=== PATIENT | male | born 1950 | race Caucasian/White ===

== ENCOUNTER 2018-05-11 13:02 | Outpatient (CLI) | payer MEDICARE, OTHER ==
--- NOTE | 2018-05-11 15:22 | RAD ---
THORACIC SPINE THREE VIEWS: HISTORY: Thoracic pain Radiculopathy FINDINGS: Extensive multilevel thoracic spine disk osteophytosis. No evidence for acute fracture, dislocation, or significant malalignment. No acute compression injury. IMPRESSION: Thoracic spine disk osteophytosis, evidence for spondylosis. POS: [facility]
--- NOTE | 2018-05-11 15:36 | RAD ---
LUMBAR SPINE FOUR VIEWS: HISTORY: Radiculopathy. Low back pain FINDINGS: There is extensive multilevel disk osteophytosis and facet arthrosis, evidence for spondylosis. Prom inent arterial vascular calcifications. Several calcifications in the region of the left kidney, jamal picious for renal calculi. Flexion and extension lateral views demonstrate no evidence for abnormal translation between flexion and extension. IMPRESSION: 1. Fairly extensive multilevel disk osteophytosis and facet arthrosis, evidence for spondylosis. 2. Probable left renal calculi. 3. Prominent arterial vascular calcification of the aorta without evidence for calcified aneurysm. POS: [facility]
== END 2018-05-11 13:03 | disposition home or self-care (01) ==
LOC: RAD 13:02
PROVIDERS: ATTEND Nurse Practitioner Family
DX: M54.6 Pain in thoracic spine (principal); M54.5 Low back pain; M25.78 Osteophyte, vertebrae; M47.816 Spondylosis without myelopathy or radiculopathy, lumbar region; I70.0 Atherosclerosis of aorta
CPT/HCPCS: 72072; 72120; 80307; G0483

== ENCOUNTER 2019-07-12 13:34 | Outpatient (CLI) | payer MEDICARE ==
--- NOTE | 2019-07-12 14:41 | MRI ---
MRI CERVICAL SPINE WITHOUT CONTRAST: Date: 07/12/2019 INDICATION: Foraminal stenosis cervical region. Neck pain. FINDINGS: Cervical vertebra maintain height. There are moderate degenerative osteophytes in the cervical verteb ra. The disc spaces are preserved. There is mild anterolisthesis at C4-5 measuring at approximately 3 .0 mm. Findings at each level are described: No significant abnormality at C2-3. C3-4: Minimal disc bulge and spondylosis. No evidence of central canal stenosis. There is left forami nal stenosis which produces mild left foraminal narrowing/stenosis. C4-5: Posterior disc bulge and spondylosis is prominent and impinges on and mildly compresses the an terior cord producing slight flattening of the anterior cord. Bilateral foraminal stenosis more sever e on the right due to facet and uncinate hypertrophy at this level. C5-6: Mild disc bulge and spondylosis efface the anterior subarachnoid space. Right foraminal stenos is due to facet and uncinate hypertrophy. C6-7: Mild disc bulge and spondylosis mildly flatten the thecal sac. Anterior subarachnoid space is preserved. No significant foraminal stenosis apparent. The cord signal appears normally maintained. IMPRESSION: Multilevel degenerative disc changes. Posterior disc bulge and spondylosis most prominent at C4-5 whe re these changes mildly compress the anterior cord. There is foraminal stenosis at several levels as described. POS: [facility]
== END 2019-07-12 13:35 | disposition home or self-care (01) ==
LOC: BICMRI 13:34
PROVIDERS: ATTEND Nurse Practitioner Family
DX: M48.02 Spinal stenosis, cervical region (principal); M47.812 Spondylosis without myelopathy or radiculopathy, cervical region; M50.31 Other cervical disc degeneration, high cervical region
CPT/HCPCS: 72141

== ENCOUNTER 2019-12-13 05:43 | Day surgery (SDC) | payer MEDICARE ==
[2019-12-13] MEDS ORDERED: Thrombin 5000 UNITS/5 ML VIAL ONE (06:24)
[2019-12-13] MEDS ORDERED: Fentanyl 250 MCG/5 ML VIAL ONE (07:16)
[2019-12-13] MEDS ORDERED: Rocuronium Bromide 10 MG/ML (10ML VIAL) ONE (09:30)
[2019-12-13] MEDS ORDERED: PROPOFOL 200 MG/20 ML VIAL ONE (09:30)
[2019-12-13] MEDS ORDERED: Lidocaine 1% PF 5 ML VIAL ONE (09:30)
[2019-12-13] MEDS ORDERED: Ondansetron PF 4 MG/2 ML Vial ONE (09:30)
[2019-12-13] MEDS ORDERED: Dexamethasone 20 MG/5 ML VIAL ONE (09:30)
[2019-12-13] MEDS ORDERED: PHENYLEPHRINE-NS 100 MCG/ML 10 ML SYRINGE ONE (09:30)
[2019-12-13] MEDS ORDERED: PACU-Morphine 4MG/ML VIAL SLOW IVP PRN (09:45)
[2019-12-13] MEDS ORDERED: Ondansetron HCl/PF 4 MG/2 ML Vial IVP PRN (09:45)
[2019-12-13] MEDS ORDERED: Promethazine HCl 25 MG/ML VIAL IM PRN (09:45)
[2019-12-13] MEDS ORDERED: Morphine Sulfate 2 MG/ML SYRINGE SLOW IVP PRN (09:45)
[2019-12-13] MEDS ORDERED: HYDROmorphone 2 MG/ML VIAL SLOW IVP PRN (09:45)
[2019-12-13] MEDS ORDERED: Promethazine HCl 25 MG/ML VIAL SLOW IVP PRN (09:45)
[2019-12-13] MEDS ORDERED: SUGAMMADEX SODIUM 200 MG/2 ML VIAL ONE (10:01)
[2019-12-13] MEDS ORDERED: Milk Of Magnesia 30 ML UDCUP PO PRN (10:56)
[2019-12-13] MEDS ORDERED: diphenhydrAMINE 25 MG CAP PO PRN (10:56)
[2019-12-13] MEDS ORDERED: Bisacodyl 10 MG SUPP PR PRN (10:56)
[2019-12-13] MEDS ORDERED: Morphine 2 MG/ML VIAL SLOW IVP PRN (10:56)
[2019-12-13] MEDS ORDERED: Mag-Al 1200 mg/1200 mg/30 ML UDCUP PO PRN (10:56)
[2019-12-13] MEDS ORDERED: traMADol HCl 50 MG TAB PO PRN (10:56)
[2019-12-13] MEDS ORDERED: Acetaminophen 325 MG TAB PO PRN (10:56)
[2019-12-13] MEDS ORDERED: Acetaminophen/Codeine 30-300mg Tablet PO PRN (10:56)
[2019-12-13] MEDS ORDERED: Fleet Enema 133 ML BOT PR PRN (10:56)
[2019-12-13] MEDS ORDERED: Morphine 4 MG/ML VIAL ONE (11:01)
[2019-12-13] MEDS ORDERED: hydrALAZINE 20 MG/ML VIAL ONE (11:10)
[2019-12-13] MEDS ORDERED: Fentanyl 100 MCG/2 ML VIAL ONE ×2 (11:21→11:34)
--- NOTE | 2019-12-13 12:13 | OP ---
DATE OF PROCEDURE: 12/13/2019 LOCATION: OR-11. FORM RAISER: Venus Faith PA-C PREPROCEDURE DIAGNOSIS: Cervical stenosis with neck and arm pain with cervical radiculopathy. POSTPROCEDURE DIAGNOSIS: Cervical stenosis with neck and arm pain with cervical radiculopathy. PROCEDURES PERFORMED: 1. Anterior C4-C5 and C5-C6 diskectomies for decompression of spinal cord nerve roots. 2. Placement of interbody spacer C4-C5, C5-C6 packed with local bone autograft, obtained with same incision, allograft for initiation of arthrodesis (separate from plate). 3. Anterior cervical plate and screw fixation, C4, C5, C6. 4. Use of operative microscope for microdissection. DESCRIPTION OF PROCEDURE: After informed consent was obtained from the patient, the patient was brought to the OR. Proper patient, pause, and identification were carried out. He was placed under excellent endotracheal anesthesia and positioned supine on the OR table. Cervical spine was kept in neutral position. Right anterior oblique cynthia was drawn out. This region was sterilely cleansed, prepared, and draped. Proper patient, pause, and identification were carried out. The wound was then opened with combination of sharp, monopolar, and blunt dissection, proceeded lateral to the larynx, pharynx and medial to the right carotid sheath. We identified the prevertebral layer of deep cervical fascia. The retractors were brought in and we then turned our attention to distraction at C4-C5 and C5-C6. The microscope was brought in and diskectomy was done at C4-C5 with excellent decompression of the common dural tube and nerve roots. We then placed an interbody spacer with appropriate dimension. We then performed placement of interbody spacer packed with graft for initiation of arthrodesis. I was pleased with our decompression and initiation of arthrodesis. We then did the same thing at C5-C6 with distraction. Diskectomy was then performed at C5-C6 with excellent decompression of the common dural tube and nerve roots. Copious irrigation occurred throughout. We then placed an interbody spacer at that segment and interbody spacer was placed and copious irrigation then occurred throughout. Microscope was removed. Anterior plate and screw fixation then occurred. We were pleased with our construct. The wound was then closed in anatomic layers following hemostasis. Job ID: [id number]
[2019-12-13] MEDS: HYDROcodone/Acetaminophen 7.5/325 mg Tablet PO PRN ×2 (13:01→23:16)
[2019-12-13] MEDS: Cyclobenzaprine 10 MG TAB PO PRN (14:51)
[2019-12-13] MEDS: CEFAZOLIN 2 GM in Premix Bag 1 BAG IVPB SCH ×2 (17:25→23:13)
[2019-12-13] MEDS: Sodium Chloride 0.9% 1,000 ML IV SCH ×2 (17:25→23:55)
[2019-12-13 18:24] VITALS: BMI 33.4
[2019-12-13] MEDS: Bupropion 150 MG SR TAB PO SCH (20:17)
[2019-12-13] MEDS ORDERED: Tapentadol Hcl [Nucynta] 50 MG PO SCH (21:00)
[2019-12-13] MEDS ORDERED: Atorvastatin Calcium 20 MG TAB PO SCH (21:00)
[2019-12-14] MEDS: CEFAZOLIN 2 GM in Premix Bag 1 BAG IVPB SCH (08:40)
[2019-12-14] MEDS ORDERED: Tamsulosin HCl 0.4 MG CAP PO SCH (09:00)
[2019-12-14] MEDS ORDERED: Escitalopram Oxalate 20 mg Tablet PO SCH (09:00)
[2019-12-14] MEDS: Bupropion 150 MG SR TAB PO SCH (09:32)
[2019-12-14] MEDS ORDERED: Aspirin 81 mg Enteric Coated Tablet PO SCH (11:00)
[2019-12-14] MEDS: Cyclobenzaprine 10 MG TAB PO PRN (12:00)
[2019-12-14] MEDS ORDERED: Cephalexin 250 MG CAP PO SCH (12:00)
[2019-12-14] MEDS: HYDROcodone/Acetaminophen 7.5/325 mg Tablet PO PRN (12:00)
[2019-12-14] MEDS: Sodium Chloride 0.9% 1,000 ML IV SCH (13:41)
[2019-12-14 16:39] VITALS: BP 166/75; TEMP 98.3
[2019-12-15] MEDS ORDERED: Aspirin 81 mg Enteric Coated Tablet PO SCH (09:00)
== END 2019-12-14 17:00 | disposition home or self-care (01) ==
LOC: SDC 05:43 → SURG B 10:54 → SDC 12-14 17:00
PROVIDERS: ATTEND Surgery
PROC: 0RG20A0 Fusion of 2 or more Cervical Vertebral Joints with Interbody Fusion Device, Anterior Approach, Anterior Column, Open Approach (ICD-10-PCS; principal; 2019-12-13)
PROC: 0RT30ZZ Resection of Cervical Vertebral Disc, Open Approach (ICD-10-PCS; 2019-12-13)
DX: M48.02 Spinal stenosis, cervical region (principal); M54.12 Radiculopathy, cervical region; I25.10 Atherosclerotic heart disease of native coronary artery without angina pectoris; I10 Essential (primary) hypertension; E78.5 Hyperlipidemia, unspecified; I25.2 Old myocardial infarction; K21.9 Gastro-esophageal reflux disease without esophagitis; Z86.73 Personal history of transient ischemic attack (TIA), and cerebral infarction without residual deficits; Z87.891 Personal history of nicotine dependence; Z79.01 Long term (current) use of anticoagulants; Z79.82 Long term (current) use of aspirin; Z79.899 Other long term (current) drug therapy; Z95.5 Presence of coronary angioplasty implant and graft
CPT/HCPCS: 20930; 20936; 22551; 22552; 22853 ×2; 76000; C1713 ×2; C1776; J0360; J0690; J1100; J2270; J2405; J2704; J3010; J3490

== ENCOUNTER 2023-09-23 07:33 | Day surgery (SDC) | payer MEDICARE ==
[2023-09-18 16:12] VITALS: BMI 33.0
[2023-09-23] MEDS ORDERED: Indocyanine Green 25 MG/10 ML VIAL ONE (10:37)
[2023-09-23] MEDS ORDERED: Bupivacaine 0.25% HCL 30 ML VIAL ONE (10:37)
[2023-09-23] MEDS ORDERED: EPINEPHrine 1 MG/ML VIAL ONE (10:37)
[2023-09-23] MEDS ORDERED: PROPOFOL 20 ML ONE (10:42)
[2023-09-23] MEDS ORDERED: fentaNYL PF 100 MCG/2 ML SYRINGE ONE (10:42)
[2023-09-23] MEDS ORDERED: Rocuronium Bromide 10 MG/ML (10ML VIAL) ONE (10:43)
[2023-09-23] MEDS ORDERED: Phenylephrine 10 MG/ML VIAL ONE (10:44)
[2023-09-23] MEDS ORDERED: Sodium Chloride 0.9% 250 ML 250 ML ONE (10:44)
[2023-09-23] MEDS ORDERED: Sodium Chloride 0.9% 100 ML ONE (10:45)
[2023-09-23] MEDS ORDERED: CEFAZOLIN 2 GM VIAL ONE (10:45)
[2023-09-23] MEDS ORDERED: Glycopyrrolate 0.2 MG/ML 5 ML SYRINGE ONE (10:48)
[2023-09-23] MEDS ORDERED: Lidocaine 1% PF 5 ML VIAL ONE (10:58)
[2023-09-23] MEDS ORDERED: SUGAMMADEX SODIUM 200 MG/2 ML VIAL ONE (11:29)
[2023-09-23] MEDS ORDERED: Ondansetron PF 4 MG/2 ML Vial ONE (11:29)
[2023-09-23] MEDS ORDERED: fentaNYL 50 mcg/mL 1 mL Vial ONE ×2 (11:56→12:09)
== END 2023-09-23 13:30 | disposition home or self-care (01) ==
LOC: SDC 07:33
PROVIDERS: ATTEND Surgery
PROC: 0FT44ZZ Resection of Gallbladder, Percutaneous Endoscopic Approach (ICD-10-PCS; principal; 2023-09-23)
DX: K80.10 Calculus of gallbladder with chronic cholecystitis without obstruction (principal); K82.8 Other specified diseases of gallbladder; E11.9 Type 2 diabetes mellitus without complications; F41.9 Anxiety disorder, unspecified; F32.A Depression, unspecified; Z86.73 Personal history of transient ischemic attack (TIA), and cerebral infarction without residual deficits; Z79.01 Long term (current) use of anticoagulants; Z79.82 Long term (current) use of aspirin; Z79.84 Long term (current) use of oral hypoglycemic drugs; Z79.899 Other long term (current) drug therapy; Z90.49 Acquired absence of other specified parts of digestive tract
CPT/HCPCS: 47562; C1889; J0171; J0665; J2371; J2405; J2704; J3010; J3490; J7050; 88304